=== PATIENT | male | born 1955 | race Caucasian/White ===

== ENCOUNTER → 2019-11-01 | Day surgery (SDC) | payer OTHER ==
[2019-10-31 15:12] LABS: BASOPHILS % 0.3 % (0.0-1.0); EOSINOPHILS # (AUTO) 0.3 (0.0-0.4); EOSINOPHILS % 5.6 % (0.0-6.0); HEMATOCRIT 39.3 % (38.2-49.6); HEMOGLOBIN 12.9 g/dL (14.0-18.0); LYMPHOCYTES # (AUTO) 1.1 (1.0-3.2); LYMPHOCYTES % 17.4 % (18.0-39.1); MEAN CORPUSCULAR HEMOGLOBIN 29.7 pg (28-32); MEAN CORPUSCULAR HGB CONC 32.8 g/dL (31-35); MEAN CORPUSCULAR VOLUME 90.3 fL (81-99); MONOCYTES # (AUTO) 0.7 (0.2-0.8); MONOCYTES % 10.9 % (4.4-11.3); NEUTROPHILS % 65.5 % (38.7-80.0); PLATELET COUNT 186 x10e3/uL (140-360); RED BLOOD COUNT 4.35 x10e6/uL (4.3-5.7); RED CELL DISTRIBUTION WIDTH 13.7 % (11.7-14.4)
--- NOTE | 2019-10-31 15:13 | Diagnostic Imaging Report ---
EXAM: CHEST 2 VIEWS DATE: 10/31/2019 2:42 PM INDICATION: Preoperative evaluation COMPARISON: None FINDINGS: The trachea is midline. The lungs are symmetrically expanded without evidence for large focal consolidation, pneumothorax, or significant pleural effusion. The cardiomediastinal silhouette and pulmonary vasculature are within normal limits. No acute osseous abnormality is identified. The surrounding soft tissues are unremarkable. IMPRESSION: No acute cardiopulmonary process identified. Signed by: Dr. Chicho Zhong MD on 10/31/2019 3:10 PM
[2019-10-31 15:26] LABS: INR 0.95; PARTIAL THROMBOPLASTIN TIME 30.9 seconds (23.8-35.5); PROTHROMBIN TIME 13.2 seconds (11.9-14.5)
[2019-10-31 15:34] LABS: ALANINE AMINOTRANSFERASE 12 IU/L (0-55); ALBUMIN 3.6 g/dL (3.5-5.0); ALBUMIN/GLOBULIN RATIO 1.1 (0.8-2.0); ALKALINE PHOSPHATASE 58 IU/L (40-150); ANION GAP 14.8 mmol/L (8-16); BLOOD UREA NITROGEN 17 mg/dL (7-26); BUN/CREATININE RATIO 15 (6-25); CALCIUM 9.1 mg/dL (8.4-10.2); CARBON DIOXIDE 22 mmol/L (22-29); CHLORIDE 107 mmol/L (98-107); CREATININE, SERUM 1.15 mg/dL (0.72-1.25); EST GLOMERULAR FILTRATION RATE > 60 ML/MIN (60-); GLUCOSE 161 mg/dL (74-118); POTASSIUM 3.8 mmol/L (3.5-5.1); SODIUM 140 mmol/L (136-145)
[~2019-11-01] MED LIST: ASPIR 8181 MG PO; BUPIVACAINE HCL 0.5% INJ 30 ML VIAL INJ ONE; CEFAZOLIN SOD 1 GM/NS 50ML 100 ML IV ONE; COREG12.5 MG PO; DEXAMETHASONE SOD PHOS INJ 4 MG/ML VIAL ONE; FENTANYL CITRATE/PF 100MCG/2 ML INJ ONE; HUMULIN 70100 UNIT/3 SQ; KETOROLAC TROMETHAMINE 30 MG/ML VIAL ONE; LIDOCAINE HCL 2% LOCAL INJ 5 ML SDV VIAL INJ ONE; MIDAZOLAM HCL 2 MG/2 ML VIAL ONE; MYCOPHENOLATE250 MG PO; NEOSTIGMINE 1 MG/ML 10ML VIAL ONE; ONDANSETRON HCL INJ 2MG/ML 2ML 2 MG/ML VIAL ONE; PROPOFOL IV EMULSION 10 MG/ML 20 ML VIAL ONE; SEVOFLURANE INHAL SOLN 250 ML PEN BTL ONE; ZOLOFT50 MG PO
--- OUTSIDE RECORDS SUMMARY | 2019-11-01 08:14 | XMS REPORT ---
Author Author [facility] Address Unknown Phone Unavailable Care Team Providers Care Pizza Cook Name Role Phone IVANIA RUBIN Unavailable Unavailable Problems This patient has no known problems. Allergies, Adverse Reactions, Alerts This patient has no known allergies or adverse reactions. Medications This patient has no known medications. Encounters Start Date/Time End Date/Time Encounter Type Admission Type Attending Clinicians Care Facility Care Department Encounter ID 2019-07-30 11:27:00 2019-07-30 11:27:00 Outpatient [facility] [id number] 2019-03-19 10:44:00 2019-03-19 10:44:00 Outpatient [facility] [id number] Results Test Description Test Time Test Comments Text Results Atomic Results Result Comments CHEST 2 VIEWS 2019-10-31 15:10:00 [place] [address] Patient Name: ZAIDA MORALES MR #: [id number] : 1955 Age/Sex: 64/M Req #: [id number] Adm Physician: Ordered by: IVANIA RUBIN DP Report #: [id number] Location: OR Room/Bed: Procedure: [id number] DX/CHEST 2 VIEWS Exam Date: 10/31/19 Exam Time: 1452 REPORT STATUS: Signed EXAM: CHEST 2 VIEWS DATE: 10/31/2019 2:42 PM IN DICATION: Preoperative evaluation COMPARISON: None FINDINGS: The trachea is midline. The lungs are symmetrically expanded without evidence for large focal consolidation, pneumothorax, or significant pleural effusion. The cardiomediastinal silhouette and pulmonary vasculature are within normal limits. No acute osseous abnormality is identified. The surrounding soft tissues are unremarkable. IMPRESSION: No acute cardiopulmonary process identified. Signed by: Dr. Chicho Gallegos MD on 10/31/2019 3:10 PM Dictated By: CHICHO GALLEGOS MD [id number] Transcribed By: ASHLEY on 10/31/19 1510 COPY TO: IVANIA RUBIN DPM
[2019-11-01 12:55] VITALS: BP 131/86
--- NOTE | 2019-11-05 | Operative Report ---
DATE OF PROCEDURE: 11/01/2019 SURGEON: Kirill Thomas DPM ROOM NUMBER: [facility]. PREOPERATIVE DIAGNOSIS: Comminuted fracture, Calvillo 2B calcaneus, right foot. POSTOPERATIVE DIAGNOSIS: Comminuted fracture, Calvillo 2B calcaneus, right foot. TITLE OF THE OPERATION: An open reduction with internal fixation of the calcaneus of the right foot. ANESTHESIA: General endotracheal. HEMOSTASIS: Right thigh tourniquet at 350 mmHg. PROCEDURE IN DETAIL: The patient was taken to the operating room in a mildly sedated state and placed on the operating table in supine position. Following induction of general anesthetic, the right lower extremity was elevated to 60 degrees to exsanguinate before inflating the pneumatic thigh tourniquet to 350 mmHg to create hemostasis. Right lower extremity was placed on the operating table prior to performing the following procedure. Procedure #1: Open reduction with internal fixation of the calcaneus, right foot. A lateral curvilinear incision was made overlying the lateral aspect of the calcaneus. The incision was deepened via sharp and blunt dissection down to the level of the lateral calcaneal wall, where a blowout fracture was noted. There were multiple comminuted fracture fragments including a subtalar joint fracture and medial displacement fracture. The fractures were all realigned with the appropriate distraction and Steinmann pin was used from posterior heel as a joystick to plantar flex and faheem the calcaneus. The Steinmann pin was then driven into the stabilizing portion of the midfoot and the area was irrigated with copious amounts of sterile saline solution. Under fluoroscopy, the fracture fragments were noted to be adequately reduced and a calcaneal fracture plate was installed on the lateral aspect of the foot with a combination of locking and nonlocking screws. This was a Chandana VariAx plate, mesh plate in nature and small 3.5 locking screws, four were used and five 3.5 non locking screws. The area was noted to have excellent fixation on radiographs with all fragments being stabilized. Steinmann pin was removed and the fixation was noted to be stable. Allograft was used to cover the hardware and facilitate wound closure of this difficult to heal wound, L-shaped incision at the lateral aspect of the calcaneus. This having been accomplished and the deep closure achieved with a combination of 3-0 Vicryl and 4-0 Vicryl, skin closure was 4-0 nylon. The areas of surgery were blocked with 0.5 Marcaine, Decadron [place] and release of the pneumatic thigh tourniquet showed a normal hyperemic flush to all digits of the right foot. The patient was placed in a posterior splint. We will follow up within 1 week postoperatively. ANTONIO Coy/PARISH /[id number]
== END | disposition home or self-care (01) ==
LOC: OR 08:09
PROVIDERS: ATTEND Podiatrist Foot Surgery
DX: S92.001A Unspecified fracture of right calcaneus, initial encounter for closed fracture (principal); I34.1 Nonrheumatic mitral (valve) prolapse; E11.9 Type 2 diabetes mellitus without complications; X58.XXXA Exposure to other specified factors, initial encounter; Z01.812 Encounter for preprocedural laboratory examination; Z01.818 Encounter for other preprocedural examination; Z79.82 Long term (current) use of aspirin; Z79.4 Long term (current) use of insulin
CPT/HCPCS: 28415; 36415 ×2; 71046; 80053; 82948; 85025; 85610; 85730; C1713 ×7; C1769; J0690; J1100; J1885; J2001; J2250; J2405; J2704; J2710; J3010; Q4150